=== PATIENT | male | born 2000 | race American Indian/Alaskan Native ===

== ENCOUNTER 2021-10-17 13:26 | Emergency (ER) | payer SELFPAY ==
[2021-10-17 14:22] VITALS: BP 117/68
--- NOTE | 2021-10-17 15:22 | Emergency Department Report ---
ED Male HPI - General Chief complaint: Recheck/Abnormal Lab/Rx Stated complaint: STD EXPOSURE Source: patient Mode of arrival: Ambulatory Limitations: No Limitations - History of Present Illness Initial comments: 20-year-old male presents to the ED complaining dysuria dysuria after having sex 6 days ago. Patient states that he had unprotected sex and ever since has been experiencing dysuria. Patient denies any penile discharge is present. No abdominal pain fever chills or testicle pain. Patient also requested to have STD testing done. Patient is alert and oriented x3.No Acute distress noted. No ill appearance noted MD Complaint: dysuria Onset/Timin -: days(s) Improves with: urination Worsens with: none - Related Data Sexually active: Yes Previous Rx's Medication Instructions Recorded Last Taken Type Doxycycline Hyclate [Doxycycline 100 mg PO Q12HR 10 Days #20 tab 10/17/21 Unknown Rx Hyclate TAB] Allergies Allergy/AdvReac Type Severity Reaction Status Date / Time No Known Allergies Allergy Verified 10/17/21 14:18 ED Review of Systems ROS: Stated complaint: STD EXPOSURE Other details as noted in HPI Constitutional: denies: chills, fever Eyes: denies: eye pain, eye discharge, vision change ENT: denies: ear pain, throat pain Respiratory: denies: cough, shortness of breath, wheezing Cardiovascular: denies: chest pain, palpitations Endocrine: no symptoms reported Gastrointestinal: denies: abdominal pain, nausea, diarrhea Genitourinary: denies: urgency Musculoskeletal: denies: back pain, joint swelling, arthralgia Skin: denies: rash, lesions Neurological: denies: headache, weakness, paresthesias Psychiatric: denies: anxiety, depression Hematological/Lymphatic: denies: easy bleeding, easy bruising ED Past Medical Hx - Medications Home Medications: Home Medications Medication Instructions Recorded Confirmed Last Taken Type Doxycycline Hyclate [Doxycycline 100 mg PO Q12HR 10 Days #20 tab 10/17/21 Unknown Rx Hyclate TAB] ED Physical Exam - General Limitations: No Limitations General appearance: alert, in no apparent distress - Head Head exam: Present: atraumatic, normocephalic - Eye Eye exam: Present: normal appearance - ENT ENT exam: Present: mucous membranes moist - Neck Neck exam: Present: normal inspection - Respiratory Respiratory exam: Present: normal lung sounds bilaterally. Absent: respiratory distress - Cardiovascular Cardiovascular Exam: Present: regular rate, normal rhythm. Absent: systolic murmur, diastolic murmur, rubs, gallop - GI/Abdominal GI/Abdominal exam: Present: soft, normal bowel sounds - Rectal Rectal exam: Present: deferred - Extremities Exam Extremities exam: Present: normal inspection - Back Exam Back exam: Present: normal inspection - Neurological Exam Neurological exam: Present: alert, oriented X3 - Psychiatric Psychiatric exam: Present: normal affect, normal mood - Skin Skin exam: Present: warm, dry, intact, normal color. Absent: rash ED Course Vital Signs 10/17/21 14:19 Temperature 98.6 F Pulse Rate 65 Respiratory 16 Rate Blood Pressure 117/68 [Left] O2 Sat by Pulse 99 Oximetry ED Medical Decision Making - Medical Decision Making 20-year-old male presents to the ED complaining dysuria dysuria after having sex 6 days ago. Patient states that he had unprotected sex and ever since has been experiencing dysuria. Patient denies any penile discharge is present. No abdominal pain fever chills or testicle pain. Patient also requested to have STD testing done. Patient is alert and oriented x3.No Acute distress noted. No ill appearance noted. Physical examination unremarkable. Will empirically treat patient for treatment gonorrhea chlamydia trichomonas. Patient to follow-up with outpatient facility Rechecked the patient is resting quietly quietly and comfortable and feeling better. I discussed the results of diagnostic study, my clinical impression and the plan for further treatment with the patient. Patient agrees with plan and discharge at this present time. All question addressed. I have given the patient instruction regarding a diagnosis ,expectation ,follow- up and return precaution. I explained to the patient that emergent condition may arise and to return to the ED for new worsen and any new persisting condition. I have explained the importance of following up with the primary care physician or referral physician listed below has instructed. The patient verbalized understanding of discharge instruction. Critical care attestation.: If time is entered above; I have spent that time in minutes in the direct care of this critically ill patient, excluding procedure time. ED Disposition Clinical Impression: Dysuria, Exposure to STD Disposition: [facility] HOME FACILITY Is pt being admited?: No Does the pt Need Aspirin: No Condition: Stable Instructions: Dysuria, Safe Sex Additional Instructions: Follow-up with your local health department Return to the ED for any worsening symptom Prescriptions: Doxycycline Hyclate [Doxycycline Hyclate TAB] 100 mg PO Q12HR 10 Days #20 tab Referrals: RENUKA DINERO MD [Primary Care Provider] - 3-5 Days [facility] [Outside] - 3-5 Days Forms: Work/School Release Form(ED)
[2021-10-17 15:35] LABS: Bilirubin,Urine NEG (Negative); Blood,Urine NEG (Negative); Color,Urine Yellow (Yellow); Mucus,Urine 3+ /HPF
[2021-10-17] MEDS ORDERED: LIDOCAINE-MPF (1%) 10 MG/1 ML VIAL 5 ML INFILTRATI ONE (16:03)
[2021-10-17] MEDS ORDERED: AZITHROMYCIN 250 MG TAB PO ONE (16:04)
== END 2021-10-17 17:12 ==
LOC: ED 13:26
DX: R30.0 Dysuria (principal); Z20.2 Contact with and (suspected) exposure to infections with a predominantly sexual mode of transmission; Z79.899 Other long term (current) drug therapy
CPT/HCPCS: 81001; 96372; 99283; J0696; J3490